=== PATIENT | female | born 1965 | race African-American/Black ===

== ENCOUNTER 2020-09-21 10:41 | Inpatient (IN) | payer MEDICAID, OTHER ==
[~2020-09-21] VITALS: Ht 170.2 cm; Wt 120.2 kg
[2020-09-21] MEDS ORDERED: KETOROLAC 30MG/ML VIAL IV STA (11:03)
[2020-09-21] MEDS ORDERED: AZITHROMYCIN 500 MG in DEXT 5% WATER 250 ML IV ONE (11:15)
[2020-09-21] MEDS ORDERED: CEFTRIAXONE 1 G PREMIX 50 ML IV ONE (11:15)
[2020-09-21 11:22] LABS: BASOPHILS % 0.3 % (0.0-2.0); HEMATOCRIT. 37.9 % (36.0-48.0); HEMOGLOBIN. 12.7 g/dL (12.0-16.0); LYMPHOCYTES % 8.3 % (20.0-50.0); MEAN CORPUSCULAR HEMOGLOBIN 28.5 pg (28.0-32.0); MEAN PLATELET VOLUME 9.6 fl (7.4-10.4); MONOCYTES % 4.3 % (2.0-8.0); NEUTROPHILS % 87.1 % (40.0-76.0); PLATELET 254 x1000/uL (130-400); RED BLOOD CELL COUNT 4.46 mill/uL (4.2-5.4); RED CELL DISTRIBUTION WIDTH 16.5 % (11.6-14.6)
[2020-09-21 11:31] LABS: CHLORIDE 98 mEq/L (98-107)
[2020-09-21] MEDS ORDERED: DEXAMETHASONE 10 MG/ML VIAL IV ONE (12:00)
[2020-09-21] MEDS ORDERED: DOCUSATE SODIUM 100MG CAPSULE PO PRN (18:00)
[2020-09-21] MEDS ORDERED: MAGNESIUM/ALUMINUM HYDROXIDE/SIMETHICONE 30ML UDC PO PRN (18:00)
[2020-09-21] MEDS ORDERED: ACETAMINOPHEN 325MG TABLET PO PRN (18:00)
[2020-09-21] MEDS ORDERED: ONDANSETRON HCL 4MG/2ML INJ IV PRN (18:00)
[2020-09-21] MEDS ORDERED: ALBUTEROL 6.7GM HFA INHALER ORI PRN (18:00)
[2020-09-21] MEDS ORDERED: HYDROCODONE/ACETAMINOPHEN 5/325MG TABLET PO PRN (18:00)
[2020-09-21] MEDS ORDERED: CLONIDINE 0.1MG TABLET PO PRN (18:00)
[2020-09-21] MEDS ORDERED: KCL 20MEQ/100ML PREMIX 100 ML IV NR (18:30)
[2020-09-21] MEDS ORDERED: ENOXAPARIN 40MG/0.4ML SYR SUBCUT SCH (20:00)
[2020-09-21] MEDS ORDERED: IOHEXOL-350 100 ML BOTTLE ONE (23:26)
[2020-09-22] VITALS: BP_SYST 158; BP_SYST 160; BP_DIAS 76
[2020-09-22] LABS: CREATINE KINASE MB FRACTION 7.1 ng/mL (0.5-3.6)
[2020-09-22 04:00] VITALS: BP 137/85
[2020-09-22 08:55] LABS: BASOPHILS % 0.3 % (0.0-2.0); HEMATOCRIT. 37.2 % (36.0-48.0); HEMOGLOBIN. 12.3 g/dL (12.0-16.0); LYMPHOCYTES % 8.9 % (20.0-50.0); MEAN CORPUSCULAR HEMOGLOBIN 28.5 pg (28.0-32.0); MEAN CORPUSCULAR VOLUME 86.1 fL (81.0-99.0); NEUTROPHILS % 82.8 % (40.0-76.0); RED BLOOD CELL COUNT 4.32 mill/uL (4.2-5.4); RED CELL DISTRIBUTION WIDTH 16.7 % (11.6-14.6)
[2020-09-22 09:08] LABS: CHLORIDE 102 mEq/L (98-107)
[2020-09-22 09:19] LABS: PHOSPHORUS 3.8 mg/dL (2.5-4.9)
[2020-09-22 09:20] LABS: LDL CHOLESTEROL 142 mg/dL (5-100)
[2020-09-22 09:22] LABS: CREATINE KINASE MB FRACTION 7.1 ng/mL (0.5-3.6); HDL CHOLESTEROL 36 mg/dL (40-59)
[2020-09-22] MEDS: DEXAMETHASONE 4MG TABLET PO SCH (09:32)
[2020-09-22] MEDS: AZITHROMYCIN 500 MG TABLET PO SCH (09:32)
[2020-09-22] MEDS: OMEPRAZOLE 20MG CAPSULE EXTENDED RELEASE PO SCH (09:33)
[2020-09-22] MEDS: ENOXAPARIN 30MG/0.3ML SYR SUBCUT SCH ×2 (09:34→21:18)
[2020-09-22 09:51] VITALS: BP 163/99
[2020-09-22 10:34] LABS: PLATELET 248 x1000/uL (130-400)
[2020-09-22 10:35] LABS: MEAN PLATELET VOLUME 9.9 fl (7.4-10.4)
[2020-09-22] MEDS ORDERED: CEFTRIAXONE 1 G PREMIX 50 ML IV SCH (11:00)
[2020-09-22] MEDS ORDERED: FUROSEMIDE 20MG/2ML VIAL IVP NR (13:15)
[2020-09-22 13:21] VITALS: BP 155/93
[2020-09-22] MEDS ORDERED: POTASSIUM CHLORIDE 20MEQ TABLET SR PO NR (14:00)
[2020-09-22] MEDS: CEFTRIAXONE 1,000 MG in DEXTROSE 5% WATER 50 ML IV SCH (14:32)
[2020-09-22 16:06] LABS: BG BASE EXCESS 5.6 mmol/L (-2.0-2.0); BG CARBOXYHEMOGLOBIN 0.2 % (0.5-1.5); BG FRACTION INSPIRED OXYGEN 100; BG HCO3 ACT 29.1 mmol/L (22.0-26.0); BG METHEMOGLOBIN 0.1 % (0.0-1.5); BG OXYGEN SATURATION 82.9 % (92.0-98.5); BG OXYHEMOGLOBIN 82.7 % (94.0-97.0); BG PCO2 38.5 mmHg (35.0-45.0); BG PH 7.496 (7.350-7.450); BG PO2 46.7 mmHg (75.0-100.0); BG SAMPLE SITE RIGHT RADIAL; BG TOTAL HEMOGLOBIN 13.8 g/dL (12.0-18.0); BG VENT MODE MASK - NRB
[2020-09-22 16:49] VITALS: BP 154/90
[2020-09-22 20:00] VITALS: BP 184/100
[2020-09-23] VITALS: BP 161/96
[2020-09-23 01:03] LABS: METHADONE URINE SCREEN NEGATIVE (NEGATIVE)
[2020-09-23 01:04] LABS: *AMPHETAMINES SCREEN URINE NEGATIVE (NEGATIVE); *BARBITURATES SCREEN URINE NEGATIVE (NEGATIVE); *BENZODIAZEPINES SCREEN URINE NEGATIVE (NEGATIVE); *COCAINE SCREEN URINE NEGATIVE (NEGATIVE); CANNABINOID URINE SCREEN NEGATIVE (NEGATIVE); OPIATES URINE SCREEN PRESUMTIVE POSITIVE (NEGATIVE); PHENCYCLIDINE URINE SCREEN NEGATIVE (NEGATIVE)
[2020-09-23 04:00] VITALS: BP 160/99
[2020-09-23 06:19] LABS: BASOPHILS % 0.2 % (0.0-2.0); HEMATOCRIT. 38.1 % (36.0-48.0); HEMOGLOBIN. 12.4 g/dL (12.0-16.0); LYMPHOCYTES % 8.7 % (20.0-50.0); MEAN CORPUSCULAR HEMOGLOBIN 28.1 pg (28.0-32.0); MEAN CORPUSCULAR VOLUME 86.6 fL (81.0-99.0); MEAN PLATELET VOLUME 9.6 fl (7.4-10.4); MONOCYTES % 4.5 % (2.0-8.0); NEUTROPHILS % 86.6 % (40.0-76.0); PLATELET 257 x1000/uL (130-400); RED CELL DISTRIBUTION WIDTH 16.7 % (11.6-14.6)
[2020-09-23 06:28] LABS: CHLORIDE 102 mEq/L (98-107)
[2020-09-23] MEDS: OMEPRAZOLE 20MG CAPSULE EXTENDED RELEASE PO SCH (06:58)
[2020-09-23] MEDS: ENOXAPARIN 30MG/0.3ML SYR SUBCUT SCH (10:13)
[2020-09-23] MEDS: DEXAMETHASONE 4MG TABLET PO SCH (10:13)
[2020-09-23] MEDS: AZITHROMYCIN 500 MG TABLET PO SCH (10:13)
[2020-09-23] MEDS ORDERED: ENOXAPARIN 100MG/ML SYR SUBCUT NR (12:30)
[2020-09-23 13:45] VITALS: BP 160/96
[2020-09-23] MEDS: CEFTRIAXONE 1,000 MG in DEXTROSE 5% WATER 50 ML IV SCH (15:10)
[2020-09-23 16:24] LABS: INR 1.2; PROTHROMBIN TIME 12.8 sec (9.6-11.0)
[2020-09-23] MEDS: ENOXAPARIN 150MG/ML SYR SUBCUT SCH (22:16)
[2020-09-23] MEDS: HYDRALAZINE HCL 25MG TABLET PO SCH (22:16)
[2020-09-24] VITALS: BP 167/87
[2020-09-24 04:00] VITALS: BP 162/98
[2020-09-24 08:00] VITALS: BP 149/96
[2020-09-24] MEDS: AZITHROMYCIN 500 MG TABLET PO SCH (09:00)
[2020-09-24] MEDS: ENOXAPARIN 150MG/ML SYR SUBCUT SCH ×2 (10:52→21:40)
[2020-09-24] MEDS: DEXAMETHASONE 4MG/ML 1ML VIAL IV SCH (10:53)
[2020-09-24] MEDS: HYDRALAZINE HCL 25MG TABLET PO SCH (10:53)
[2020-09-24] MEDS: CEFTRIAXONE 1,000 MG in DEXTROSE 5% WATER 50 ML IV SCH (14:40)
[2020-09-24] MEDS: FAMOTIDINE 20MG TABLET PO SCH ×2 (14:40→22:47)
[2020-09-24 16:00] VITALS: BP 162/100
[2020-09-24 19:34] LABS: BG BASE EXCESS 5.8 mmol/L (-2.0-2.0); BG CARBOXYHEMOGLOBIN 0.5 % (0.5-1.5); BG DEOXYHEMOGLOBIN 17.1 % (0.0-5.0); BG FRACTION INSPIRED OXYGEN 100; BG METHEMOGLOBIN 0.3 % (0.0-1.5); BG OXYGEN SATURATION 82.8 % (92.0-98.5); BG OXYHEMOGLOBIN 82.1 % (94.0-97.0); BG PCO2 41.9 mmHg (35.0-45.0); BG PH 7.473 (7.350-7.450); BG PO2 46.3 mmHg (75.0-100.0); BG SAMPLE SITE RIGHT RADIAL; BG TOTAL HEMOGLOBIN 13.3 g/dL (12.0-18.0); BG TOTAL RESPIRATORY RATE 43 b/min; BG VENT MODE MASK - BIPAP
[2020-09-24 20:00] VITALS: BP 158/83
[2020-09-24] MEDS: HYDRALAZINE HCL 50MG TABLET PO SCH (21:42)
[2020-09-25] VITALS (28 sets, daily range): BP systolic 35–208; BP diastolic 23–186
[2020-09-25] MEDS: DEXAMETHASONE 4MG/ML 1ML VIAL IV SCH (10:10)
[2020-09-25] MEDS: FAMOTIDINE 20MG TABLET PO SCH ×3 (10:10→20:50)
[2020-09-25] MEDS: AZITHROMYCIN 500 MG TABLET PO SCH (10:10)
[2020-09-25] MEDS: ENOXAPARIN 150MG/ML SYR SUBCUT SCH ×2 (10:11→20:47)
[2020-09-25] MEDS: HYDRALAZINE HCL 50MG TABLET PO SCH ×2 (10:11→20:41)
[2020-09-25] MEDS ORDERED: LORAZEPAM 2MG/ML CPJ IV SCH (11:15)
[2020-09-25] MEDS ORDERED: FENTANYL CITRATE/PF 2,500 MCG in SODIUM CHLORIDE 0.9% 200 ML IV PRN (12:00)
[2020-09-25] MEDS ORDERED: PROPOFOL 10MG/ML 100ML 100 ML IV PRN (12:00)
[2020-09-25] MEDS ORDERED: MIDAZOLAM HCL 100 MG in DEXT 5% WATER 80 ML IV PRN (12:00)
[2020-09-25] MEDS ORDERED: PHENYLEPHRINE 50 MG in DEXT 5% WATER 245 ML IV PRN (13:30)
[2020-09-25 14:17] LABS: BG BASE EXCESS -8.9 mmol/L (-2.0-2.0); BG FRACTION INSPIRED OXYGEN 100; BG PCO2 55.4 mmHg (35.0-45.0); BG PH 7.176 (7.350-7.450); BG PO2 74.7 mmHg (75.0-100.0); BG SAMPLE SITE RIGHT BRACHIAL; BG VENT MODE VENT - AC
[2020-09-25] MEDS ORDERED: NOREPINEPHRINE 8 MG in DEXT 5% WATER 242 ML IV PRN (16:30)
[2020-09-25 16:43] LABS: BG BASE EXCESS -13.5 mmol/L (-2.0-2.0); BG CARBOXYHEMOGLOBIN 0.4 % (0.5-1.5); BG DEOXYHEMOGLOBIN 30.3 % (0.0-5.0); BG HCO3 ACT 17.3 mmol/L (22.0-26.0); BG METHEMOGLOBIN 0.5 % (0.0-1.5); BG OXYGEN SATURATION 69.4 % (92.0-98.5); BG OXYHEMOGLOBIN 68.8 % (94.0-97.0); BG PCO2 62.8 mmHg (35.0-45.0); BG PH 7.058 (7.350-7.450); BG SAMPLE SITE RIGHT RADIAL; BG VENT MODE VENT - AC
[2020-09-25 17:07] LABS: BASOPHILS % 0.4 % (0.0-2.0); EOSINOPHILS % 0.2 % (0.0-5.0); HEMOGLOBIN. 12.1 g/dL (12.0-16.0); LYMPHOCYTES % 8.9 % (20.0-50.0); MEAN CORPUSCULAR HEMOGLOBIN 27.2 pg (28.0-32.0); MEAN CORPUSCULAR VOLUME 92.3 fL (81.0-99.0); MEAN PLATELET VOLUME 9.8 fl (7.4-10.4); MONOCYTES % 2.8 % (2.0-8.0); NEUTROPHILS % 87.7 % (40.0-76.0); PLATELET 245 x1000/uL (130-400); RED BLOOD CELL COUNT 4.44 mill/uL (4.2-5.4); RED CELL DISTRIBUTION WIDTH 17.7 % (11.6-14.6)
[2020-09-25 17:12] LABS: CHLORIDE 103 mEq/L (98-107)
[2020-09-25] MEDS: PHENYLEPHRINE 50 MG in SODIUM CHLORIDE 0.9% 245 ML IV PRN ×2 (17:16→20:08)
[2020-09-25] MEDS ORDERED: NOREPINEPHRINE 32 MG in DEXT 5% WATER 242 ML IV PRN (17:47)
[2020-09-25 17:52] LABS: PHOSPHORUS 12.5 mg/dL (2.5-4.9)
[2020-09-25] MEDS ORDERED: NOREPINEPHRINE 32 MG in DEXTROSE 5% WATER 250 ML IV PRN (18:15)
[2020-09-25] MEDS: CEFTRIAXONE 1,000 MG in DEXTROSE 5% WATER 50 ML IV SCH (20:52)
[2020-09-25] MEDS: NOREPINEPHRINE 32 MG in SODIUM CHLORIDE 0.9% 218 ML IV PRN ×2 (23:11→23:14)
[2020-09-25] MEDS: PHENYLEPHRINE 100 MG in SODIUM CHLORIDE 0.9% 240 ML IV PRN ×2 (23:13→23:36)
[2020-09-25] MEDS: VASOPRESSIN 20 UNIT in SODIUM CHLORIDE 0.9% 99 ML IV PRN ×2 (23:28→23:37)
[2020-09-26] VITALS (49 sets, daily range): BP systolic 41–178; BP diastolic 14–118
[2020-09-26] MEDS ORDERED: SODIUM CHLORIDE 0.9% IV SCH (03:00)
[2020-09-26] MEDS ORDERED: PHENYLEPHRINE IV SCH (03:00)
[2020-09-26] MEDS: NOREPINEPHRINE 64 MG in SODIUM CHLORIDE 0.9% 436 ML IV SCH ×2 (04:00→11:45)
[2020-09-26] MEDS: PHENYLEPHRINE 200 MG in SODIUM CHLORIDE 0.9% 480 ML IV SCH ×2 (04:07→11:44)
[2020-09-26] MEDS ORDERED: EPINEPHRINE 10 MG in SODIUM CHLORIDE 0.9% 240 ML IV PRN (07:45)
[2020-09-26] MEDS ORDERED: IPRATROPIUM/ALBUTEROL 0.5-3(2.5)MG/3ML NEB HHN PRN (07:45)
[2020-09-26] MEDS ORDERED: IPRATROPIUM/ALBUTEROL 0.5-3(2.5)MG/3ML NEB HHN SCH (08:00)
[2020-09-26] MEDS ORDERED: MEROPENEM-0.9% SODIUM CHLORIDE 50 ML IV SCH (09:00)
[2020-09-26 09:49] LABS: BG BASE EXCESS -24.6 mmol/L (-2.0-2.0); BG CARBOXYHEMOGLOBIN 0.2 % (0.5-1.5); BG DEOXYHEMOGLOBIN 12.5 % (0.0-5.0); BG FRACTION INSPIRED OXYGEN 100; BG HCO3 ACT 7.9 mmol/L (22.0-26.0); BG METHEMOGLOBIN 0.5 % (0.0-1.5); BG OXYGEN SATURATION 87.4 % (92.0-98.5); BG OXYHEMOGLOBIN 86.8 % (94.0-97.0); BG PCO2 41.2 mmHg (35.0-45.0); BG SAMPLE SITE RIGHT RADIAL; BG VENT MODE VENT - AC
[2020-09-26] MEDS ORDERED: SODIUM BICARBONATE 8.4% 1 MEQ/ML 50ML SYR IV NR (10:00)
[2020-09-26] MEDS: VASOPRESSIN 20 UNIT in SODIUM CHLORIDE 0.9% 99 ML IV PRN (11:45)
[2020-09-26] MEDS ORDERED: SODIUM BICARBONATE 150 MEQ in DEXTROSE 5% WATER 1,000 ML IV SCH (12:00)
[2020-09-26 12:34] LABS: MEAN CORPUSCULAR HEMOGLOBIN 27.4 pg (28.0-32.0); MEAN CORPUSCULAR VOLUME 95.5 fL (81.0-99.0); PLATELET 158 x1000/uL (130-400); RED BLOOD CELL COUNT 3.52 mill/uL (4.2-5.4); RED CELL DISTRIBUTION WIDTH 19.2 % (11.6-14.6)
[2020-09-26 12:52] LABS: HEMATOCRIT. 33.6 % (36.0-48.0); HEMOGLOBIN. 9.7 g/dL (12.0-16.0)
[2020-09-26] MEDS: DEXAMETHASONE 4MG/ML 1ML VIAL IV SCH (12:58)
[2020-09-26 18:12] LABS: PLATELET ESTIMATE NORMAL
== END 2020-09-26 14:37 | disposition expired | DRG 871 ==
LOC: ER 11:04 → 8WST 13:30 → EDBEDREQ 13:35 → ENRESERV 20:12 → MICUSO 09-25 15:11
PROVIDERS: ADMIT Internal Medicine; ATTEND Internal Medicine
PROC: 5A09457 Assistance with Respiratory Ventilation, 24-96 Consecutive Hours, Continuous Positive Airway Pressure (ICD-10-PCS; 2020-09-22)
PROC: 5A1945Z Respiratory Ventilation, 24-96 Consecutive Hours (ICD-10-PCS; principal; 2020-09-25)
PROC: 5A12012 Performance of Cardiac Output, Single, Manual (ICD-10-PCS; 2020-09-25)
PROC: 5A2204Z Restoration of Cardiac Rhythm, Single (ICD-10-PCS; 2020-09-25)
PROC: 0BH17EZ Insertion of Endotracheal Airway into Trachea, Via Natural or Artificial Opening (ICD-10-PCS; 2020-09-25)
PROC: 5A2204Z Restoration of Cardiac Rhythm, Single (ICD-10-PCS; 2020-09-26)
PROC: 05HY33Z Insertion of Infusion Device into Upper Vein, Percutaneous Approach (ICD-10-PCS; 2020-09-26)
PROC: B54MZZA Ultrasonography of Right Upper Extremity Veins, Guidance (ICD-10-PCS; 2020-09-26)
DX: A41.89 Other specified sepsis (principal); U07.1 COVID-19; J96.01 Acute respiratory failure with hypoxia; J12.82 Pneumonia due to coronavirus disease 2019; R65.21 Severe sepsis with septic shock; I82.431 Acute embolism and thrombosis of right popliteal vein; E87.1 Hypo-osmolality and hyponatremia; I24.8 Other forms of acute ischemic heart disease; E87.2 Acidosis; Z68.41 Body mass index [BMI] 40.0-44.9, adult; I46.9 Cardiac arrest, cause unspecified; E87.6 Hypokalemia; I10 Essential (primary) hypertension; E66.01 Morbid (severe) obesity due to excess calories; Z90.710 Acquired absence of both cervix and uterus
CPT/HCPCS: 36415; 36600; 71045; 71275; 76937; 80048; 80053; 80061; 80076; 80305; 82375; 82553; 82805; 82962; 83605; 83615; 83735; 83880; 84100; 84145; 84443; 84478; 84484; 85025; 85379; 87635; 87804; 92950; 93005; 93970; 94003; 94640; 99291; C1725; C1893; J0456; J0696; J1100; J1650; J1885; J1940; J2060; J2185; J2250; J2370; J2704; J3010; J3480; J3490; J7040; J7050; J7060; J7070; J8540; Q9967; A4315